=== PATIENT | female | born 1970 | race Two or more races ===

== ENCOUNTER 2023-12-17 19:55 | Emergency (ER) | payer MEDICAID ==
[~2023-12-17] VITALS: Ht 165.1 cm; Wt 85.0 kg
[2023-12-17] MEDS ORDERED: ACETAMINOPHEN 325 MG TAB PO ONE (20:15)
[2023-12-17 22:14] VITALS: BP 142/86; PULSE 85; RESP 20; TEMP 98.7; O2SAT 97
[2023-12-17] MEDS ORDERED: IBUP-1455 PO (22:38)
[2023-12-17] MEDS ORDERED: HYDR-4798 PO (22:38)
[2023-12-17] MEDS: KETOROLAC TROMETH 60MG/2ML VIAL IM ONE (22:40)
== END 2023-12-17 22:56 | disposition home or self-care (01) ==
LOC: ER 19:55
DX: S22.41XA Multiple fractures of ribs, right side, initial encounter for closed fracture (principal); S40.021A Contusion of right upper arm, initial encounter; W11.XXXA Fall on and from ladder, initial encounter; Y93.89 Activity, other specified; Y92.89 Other specified places as the place of occurrence of the external cause; Y99.8 Other external cause status
CPT/HCPCS: 70450; 71046; 71250; 72125; 74176; 96372; 99285; J1885